=== PATIENT | male | born 1960 | race Caucasian/White ===

== ENCOUNTER 2017-01-01 18:09 | Emergency (ER) | payer OTHER ==
--- NOTE | ~2017-01-01 | ER ---
PATIENT'S NAME: LUCIANO KOENIG [facility] AGE: 56 Y [address] ROOM: [place] [id number] LOCATION: [facility] ADMIT DATE: 01/01/2017 ER/Outpatient Report DISCHARGE DATE: 01/01/2017 FAMILY PHYSICIAN: Zack Schofield MD ATTENDING PHYSICIAN: Conchis Green Time of Arrival: 1809. Time of Evaluation: 1830. CHIEF COMPLAINT: This is a 56-year-old gentleman. He was previously fairly healthy. He is in with a complaint of left lower quadrant abdominal pain. HISTORY OF PRESENT ILLNESS: He reports that for the past 4 or 5 days he has had an aching pain in his left lower abdomen. It was at its worse on night and Sunday morning. He was in to see his regular doctor. He was diagnosed with diverticulitis and was started on antibiotics. It seemed to improve, but today the pain came back and was much more severe. PAST MEDICAL HISTORY: Significant for chronic back pain. He has a history of coronary artery disease with a 3-vessel bypass just over a year ago. He has hypertension, diabetes, and hypercholesterolemia. CURRENT MEDICATIONS: See list. REVIEW OF SYSTEMS: Otherwise negative. SOCIAL HISTORY: He is a nonsmoker. PHYSICAL EXAMINATION: GENERAL: Alert, very uncomfortable-appearing male in obvious distress. VITAL SIGNS: Stable. He was hypertensive. SKIN: Warm and damp. Color was pale. HEENT: Head, ears, eyes, nose, and throat were normal. NECK: Supple. HEART AND LUNGS: Normal. ABDOMEN: Soft. He had well-localized tenderness to the left periumbilical area. He had voluntary guarding in that area. BACK: No CVA tenderness. EXTREMITIES: Normal. PATIENT'S NAME: LUCIANO KOENIG [facility] AGE: 56 Y [address] ROOM: [place], [place] [address] LOCATION: [facility] ADMIT DATE: 01/01/2017 ER/Outpatient Report DISCHARGE DATE: 01/01/2017 FAMILY PHYSICIAN: Zack Schofield MD ATTENDING PHYSICIAN: Conchis Green NEUROLOGIC: Normal. LABORATORY DATA AND X-RAYS: Contrast CT was obtained and revealed no evidence of diverticulitis. He had an obstructing 5 mm stone at the UVJ on the left. Cardiac enzymes are negative. Metabolic panel is unremarkable. EKG revealed normal sinus rhythm with no acute ST or T-wave changes. Urinalysis revealed 2 to 5 wbc's per high- power field. It was negative for rbc's and had calcium oxalate crystals. EMERGENCY DEPARTMENT COURSE: The patient was initially given Dilaudid without much relief. Once the diagnosis of kidney stone was confirmed, he was given Toradol IV and had immediate near complete relief of his pain. ASSESSMENT: Renal colic due to ureterolithiasis, 5 mm stone in the distal left ureter. PLAN: Flomax 0.4 daily. Toradol and Percocet as needed for pain. Zofran for nausea. Follow up with the urologist in 2 to 3 days if he has not passed his stone. CONCHIS GREEN MD JDB/modl /[id number] d: 01/02/17 0150 t: 01/02/17 0542, OUTPATIENT REPORT
[~2017-01-01 18:09] MED LIST: ASPIRIN (CHILDR81 MG PO; CALCIUM ASCORB500 MG PO; CALCIUM500 MG PO; COLACE100 MG PO; CORDARONE,PACE200 MG PO; FISH OIL1000 MG; FISH OIL1000 MG PO; GLUCOPHAGE1000 MG PO; LANTUS (IN100 UNIT/M SUB-Q; LIPITOR40 MG PO; MILK OF MA400 MG/5 M PO; MIRALAX PO527 GM/BOT PO; NIACIN CONTROL500 MG PO; NORCO 5-325 MG1 TAB PO; NOVOLOG100 UNIT/M SUB-Q; PRINIVIL (ZESTRI5 MG PO; REVATIO 20 MG T20 MG PO; TENORMIN50 MG PO; THERA-VITE W/ B1 TAB PO; TRICOR145 MG PO; VITAMIN D1000 UNIT PO
[2017-01-01 18:54] LABS: BASOPHIL % 0.3 %; EOSINOPHIL # 0.2 K/uL (0.0-0.5); EOSINOPHIL % 1.9 %; HEMOGLOBIN 15.8 g/dL (12.0-17.0); IMMATURE GRANULOCYTE % 0.4 %; LYMPHOCYTE # 1.9 K/uL (0.8-4.0); LYMPHOCYTE % 20.5 %; MCH 31.7 pg (27.0-34.0); MCHC 33.6 gm/dL (32.0-36.5); MCV 94.2 fl (83.0-98.0); MONOCYTE # 0.9 K/uL (0.0-1.0); MONOCYTE % 9.9 %; MPV 11.1 fl (9.4-12.4); NEUTROPHIL # (ANC) 6.3 K/uL (1.4-9.0); NRBC % 0 /100WBC (0-0.00); PLATELET COUNT 208 K/uL (150-450); RBC 4.99 M/uL (4.00-6.00); RDW-CV 11.8 % (11.9-14.6); WBC 9.4 K/uL (4.0-11.0)
[2017-01-01 19:14] LABS: ALBUMIN 3.5 gm/dL (3.5-5.0); ANION GAP 10.3 (10.0-19.0); CALCIUM 10.1 mg/dL (8.5-10.5); CREATININE 1.4 mg/dL (0.6-1.3); POTASSIUM 4.3 mMol/L (3.7-5.1); TOTAL BILIRUBIN 0.3 mg/dL (0.0-1.5); TOTAL PROTEIN 7.9 g/dL (6.0-8.4)
[2017-01-01 19:15] LABS: CPK 142 IU/L (35-332)
[2017-01-01 21:15] LABS: BILIRUBIN URINE NEGATIVE (NEGATIVE); BLOOD URINE NEGATIVE /UL (NEGATIVE); COLOR URINE YELLOW (YELLOW); GLUCOSE URINE 100 mg/dL (NEGATIVE); KETONE URINE NEGATIVE (NEGATIVE); LEUKOCYTES URINE 25 /UL (NEGATIVE); NITRITE URINE NEGATIVE (NEGATIVE); PROTEIN URINE NEGATIVE (NEGATIVE); SPEC GRAVITY URINE 1.015 (1.003-1.035); TURBIDITY URINE CLEAR (CLEAR); UROBILINOGEN URINE NORMAL (NORMAL)
[2017-01-01 21:22] LABS: BACTERIA URINE RARE (NEGATIVE); CRYSTALS URINE CALCIUM OXALATE (NEGATIVE); MUCUS URINE 1+ (NEGATIVE); RBC URINE NEGATIVE #/HPF (NEGATIVE)
[2017-01-09] MEDS ORDERED: GLUCOPHAGE XR500 M1 PO (15:42)
[2017-01-09] MEDS ORDERED: FLOMAX0.4 MG PO (15:47)
== END 2017-01-01 22:01 | disposition disaster alternative care site (69) ==
LOC: GMED 18:09
PROVIDERS: Emergency Medicine
DX: N13.2 Hydronephrosis with renal and ureteral calculous obstruction (principal); I10 Essential (primary) hypertension; E11.9 Type 2 diabetes mellitus without complications; E78.00 Pure hypercholesterolemia, unspecified; Z79.2 Long term (current) use of antibiotics; Z79.4 Long term (current) use of insulin; Z79.84 Long term (current) use of oral hypoglycemic drugs; Z79.82 Long term (current) use of aspirin; Z79.899 Other long term (current) drug therapy; Z95.1 Presence of aortocoronary bypass graft; Z98.890 Other specified postprocedural states
CPT/HCPCS: J1170; J1885; J2405; J7030; Q9967

== ENCOUNTER → 2017-01-09 | Day surgery (SDC) | payer OTHER ==
[~2017-01-09] VITALS: Ht 182.9 cm; Wt 108.7 kg
[~2017-01-09] MED LIST changes: +FLOMAX0.4 MG PO; +GLUCOPHAGE XR500 M1 PO
--- NOTE | ~2017-01-09 | OR ---
PATIENT'S NAME: LUCIANO KOENIG [facility] AGE: 56 Y [address] ROOM: [place] [id number] LOCATION: [facility] ADMIT DATE: 01/09/2017 OR/Procedure Report DISCHARGE DATE: FAMILY PHYSICIAN: ZACK JACKSON MD ATTENDING PHYSICIAN: Beny Ndiaye SURGEON: Beny Ndiaye MD COMPUTER OPERATIONS SUPERVISOR: DATE OF PROCEDURE: 01/09/2017 PREOPERATIVE DIAGNOSIS: Distal left ureter stone. POSTOPERATIVE DIAGNOSIS: Distal left ureter stone. PROCEDURES PERFORMED: Left ureteroscopy, stone extraction, stent placement with Dangler attached. ANESTHESIA: General. COMPLICATIONS: None. INDICATION FOR PROCEDURE: The patient is a 56-year-old male with a 5 mm distal left ureter stone that he is unable to pass. DETAILS OF PROCEDURE: After informed consent was obtained, the patient was taken to the operating room. A general anesthetic was applied. He was placed in the dorsal lithotomy position. The groin area was prepped and draped in normal sterile fashion. Cystoscope was introduced into the urethra and bladder without difficulty. The left ureteral orifice was identified and cannulated with a guidewire up into the renal pelvis. Next, a balloon dilator was introduced and the distal ureter was dilated to 16 atmospheres for 3-1/2 minutes. The balloon was deflated and removed. Following this, the ureteroscope was introduced into the distal ureter where the stone was identified, engaged with a Poole stone basket and removed. The stone was sent for analysis. Following this, the cystoscope was back-loaded over a guidewire and a 6-Japanese multi-length ureteral stent was passed over the guidewire up into the renal pelvis. Radiographic imaging showed good positioning of the stent. The patient tolerated his procedure well and was transferred to recovery room in good condition. The patient was instructed to remove his stent in 3 to 4 days. BENY NDIAYE MD PATIENT'S NAME: LUCIANO KOENIG [facility] AGE: 56 Y [address] ROOM: [place], [place] [address] LOCATION: [facility] ADMIT DATE: 01/09/2017 OR/Procedure Report DISCHARGE DATE: FAMILY PHYSICIAN: ZACK JACKSON MD ATTENDING PHYSICIAN: Beny Ndiaye/zuleikal /[id number] CC: Zack Jackson MD d: 01/09/17 1846 t: 01/24/17 1157, OPERATIVE SUMMARY
== END | disposition disaster alternative care site (69) ==
LOC: GPOC 15:00 → GSDC 15:11
PROC: 0TC78ZZ Extirpation of Matter from Left Ureter, Via Natural or Artificial Opening Endoscopic (ICD-10-PCS; principal; 2017-01-09)
PROC: 0T778DZ Dilation of Left Ureter with Intraluminal Device, Via Natural or Artificial Opening Endoscopic (ICD-10-PCS; 2017-01-09)
DX: N20.1 Calculus of ureter (principal); I25.10 Atherosclerotic heart disease of native coronary artery without angina pectoris; I10 Essential (primary) hypertension; E11.9 Type 2 diabetes mellitus without complications; E78.00 Pure hypercholesterolemia, unspecified; M54.9 Dorsalgia, unspecified; G89.29 Other chronic pain; Z95.1 Presence of aortocoronary bypass graft
CPT/HCPCS: J1956; J2001; J7030

== ENCOUNTER → 2017-01-09 | Outpatient (CLI) | payer OTHER | END | disposition disaster alternative care site (69) | LOC: GRAD 12:27 | DX: N20.0 Calculus of kidney (principal) | CPT/HCPCS: C1725; C1769 ==